=== PATIENT | female | born 1975 | race Two or more races ===

== ENCOUNTER 2018-12-12 10:07 | Emergency (ER) | payer SELFPAY ==
[~2018-12-12] VITALS: Ht 154.9 cm; Wt 60.8 kg
[2018-12-12] MEDS ORDERED: ONDANSETRON 2MG/ML, 2ML IVPush ONE (11:00)
[2018-12-12] MEDS ORDERED: SODIUM CHLORIDE FLUSH 10ML SYR IVF ONE (11:00)
[2018-12-12] MEDS ORDERED: KETOROLAC 30 MG/1 ML IVPush ONE (11:00)
[2018-12-12] MEDS ORDERED: KETOROLAC 30 MG/1 ML ONE (11:08)
[2018-12-12] MEDS ORDERED: ONDANSETRON 2MG/ML, 2ML ONE (11:08)
--- NOTE | 2018-12-12 11:21 | NUR ---
Assumed care of patient. C/O LLQ pain and nausea. Known left ovarian cyst. IV started, labs drawn, and meds admin. UA sent. Will continue to monitor.
[2018-12-12 11:23] LABS: BASOPHILS # (AUTO) 0.03 x10^3/uL (0-0.1); BASOPHILS % (AUTO) 1 % (0-1); EOSINOPHILS # (AUTO) 0.05 x10^3/uL (0-0.4); EOSINOPHILS % (AUTO) 1 % (1-7); LYMPHOCYTES # (AUTO) 1.83 x10^3/uL (1-3.4); LYMPHOCYTES % (AUTO) 35 % (22-44); MD NO; MEAN CORPUSCULAR HEMOGLOBIN 32.1 pg (27.0-34.8); MEAN CORPUSCULAR HGB CONC 34.2 g/dL (32.4-35.8); MEAN CORPUSCULAR VOLUME 93.8 fL (80-100); MEAN PLATELET VOLUME 8.4 fL (7.4-10.4); MONOCYTES # (AUTO) 0.25 x10^3/uL (0.2-0.8); MONOCYTES % (AUTO) 5 % (2-9); NEUTROPHILS # (AUTO) 3.07 x10^3/uL (1.8-6.8); NEUTROPHILS % (AUTO) 59 % (42-75); PLATELET COUNT 191 x10^3/uL (130-400); RED BLOOD COUNT 4.62 x10^6/uL (3.82-5.3); RED CELL DISTRIBUTION WIDTH 12.4 % (9.6-15.2)
[2018-12-12 11:29] LABS: MICROSCOPIC NOT IND
[2018-12-12 11:32] LABS: ALANINE AMINOTRANSFERASE 68 U/L (12-78); ALBUMIN 3.8 g/dL (3.4-5.0); ANION GAP 3 mmol/L (5-15); CALCIUM 8.5 mg/dL (8.5-10.1); CHLORIDE 111 mmol/L (98-107); CREATININE 0.68 mg/dL (0.55-1.02)
[2018-12-12 11:33] LABS: CULTURE INDICATED? NO
[2018-12-12 11:37] LABS: ALKALINE PHOSPHATASE 68 U/L (45-117); BILIRUBIN,TOTAL 0.7 mg/dL (0.2-1.0); TOTAL PROTEIN 7.2 g/dL (6.4-8.2)
--- NOTE | 2018-12-12 12:21 | NUR ---
Continues to have C/O pain. aware.
--- NOTE | 2018-12-12 13:28 | NUR ---
Patient to MRI.
[2018-12-12] MEDS ORDERED: GADOBUTROL 7.5 MMOL/7.5 ML PFS ONE (14:02)
[2018-12-12 15:06] VITALS: BP 103/68
--- NOTE | 2018-12-12 15:08 | NUR ---
Pt c/o increasing pain, MD notified.
--- NOTE | 2018-12-12 16:15 | NUR ---
Patient/Caregiver given discharge instructions and they have confirmed that they understand the instructions. Patient ambulatory with steady gait.
== END 2018-12-12 16:16 | disposition home or self-care (01) ==
LOC: ED 12:23
DX: R10.32 Left lower quadrant pain (principal)
CPT/HCPCS: 36415; 74176; 80053; 81003; 83690; 84703; 85025; 99284; A9585; C8920